=== PATIENT | male | born 1990 | race Caucasian/White ===

== ENCOUNTER 2020-01-30 02:36 | Emergency (ER) | payer SELFPAY ==
[~2020-01-30] VITALS: Ht 172.7 cm; Wt 90.7 kg
[2020-01-30 02:40] VITALS: Ht 172.7 cm; Wt 90.7 kg
[2020-01-30 02:45] VITALS: BP 179/90
== END 2020-01-30 02:45 | disposition left against medical advice (07) ==
LOC: ED 02:36
DX: S70.212A Abrasion, left hip, initial encounter (principal); V49.9XXA Car occupant (driver) (passenger) injured in unspecified traffic accident, initial encounter; Y93.89 Activity, other specified; Y92.89 Other specified places as the place of occurrence of the external cause; Y99.8 Other external cause status